=== PATIENT | female | born 1985 | race Hispanic/Latino ===

== ENCOUNTER → 2024-02-11 | Outpatient (CLI) | payer BC | END | disposition home or self-care (01) | LOC: RAH 12:54 | PROVIDERS: ATTEND Family Medicine | DX: Z12.31 Encounter for screening mammogram for malignant neoplasm of breast (principal) | CPT/HCPCS: 77067 ==

== ENCOUNTER → 2024-10-09 | Outpatient (CLI) | payer BC ==
--- NOTE | 2024-10-09 15:57 | HMCIMG ---
BILATERAL BREAST ULTRASOUND: CLINICAL HISTORY: 38-year-old female for follow-up for left breast sonogram with bilateral breast sonogram. Finding: Real-time examination of the both breasts demonstrates homogeneous echotexture throughout both the breasts the left breast at 12:00 is a hypoechoic lesion measuring 1.0 x 0.86 x 0.76 cm.. The right breast has no lesion seen. IMPRESSION: Left breast at 12:00 there is a hypoechoic lesion seen measuring 1.0 x 0.86 x 0.76 cm. This is amenable for ultrasound-guided biopsy for histological sampling. CATEGORY 4: SUSPICIOUS ABNORMALITY. BIOPSY SHOULD BE CONSIDERED Recommend monthly self breast exam as well as annual clinical examination. A negative x-ray should not delay biopsy if a dominant or clinically suspicious mass is present, since 8-10% of cancers are not identified by mammography. Dense breasts particularly, may obscure an underlying neoplasm. Some of these may be detected clinically and therefore, clinical examination is an essential part of breast evaluation.
--- NOTE | 2024-10-09 15:58 | HMCIMG ---
DIGITAL left DIAGNOSTIC MAMMOGRAM Technique: The digital mammographic examination of left breast in craniocaudal, mediolateral oblique views along with CAD was obtained. History: This is a 38 years year-old female 2, para1 Ab1 . Patient has no family history of breast cancer. Patient has no complaint Reference:Prior mammogram and ultrasound from 02/11/2024 is available. Breast composition: Breast composition B: There are scattered areas of fibroglandular density. Finding: The digital mammographic examination of left breast in craniocaudal and mediolateral oblique view along with CAD demonstrates a density at 12:00 measuring approximately 1 cm which correlates with the ultrasound finding.. There is no evidence of any dendritic mass, cluster microcalcification or architectural distortion. The retromammary fat appears to be normal. IMPRESSION: Left breast at 12:00 there is a solid lesion seen which is amenable for ultrasound-guided biopsy.. FINAL ASSESSMENT: ACR: BI-RAD -4. Suspicious: Finding(s) without all the characteristics morphology of breast cancer but indicatingadefine probability of being malignant: biopsy should be considered. NOTE: IF A WORK-UP OF THIS PATIENT LEADS TO A BIOPSY, PLEASE FORWARD A COPY OF THE PATHOLOGY REPORT TO OUR OFFICE REQUIRED BY [employer] DECEMBER 20, 1993. A NEGATIVE MAMMOGRAM SHOULD NOT PRECLUDE BIOPSY OF A CLINICALLY PALPABLE SUSPICIOUS MASS, 10% OF BREAST CANCERS ARE MAMMOGRAPHICALLY OCCULT. THIS MAMMOGRAPHY FACILITY IS FULLY ACCREDITED BY THE [employer] (FDA). THANK YOU FOR THIS REFERRAL.
== END | disposition home or self-care (01) ==
LOC: RAH 14:01
PROVIDERS: ATTEND Family Medicine
DX: R92.323 Mammographic fibroglandular density, bilateral breasts (principal); N63.42 Unspecified lump in left breast, subareolar; R92.8 Other abnormal and inconclusive findings on diagnostic imaging of breast; N64.9 Disorder of breast, unspecified
CPT/HCPCS: 77065

== ENCOUNTER → 2024-10-30 | Outpatient (CLI) | payer BC ==
[2024-10-30 08:46] LABS: INR 0.97 (0.85-1.15)
--- NOTE | 2024-10-30 10:00 | NUR ---
U/S GD LT BREAST NODULE BX PROCEDURE PERFORMED BY DR FERGUSON . PUNCTURE SITE LT BREAST AND PATIENT TOLERATED PROCEDURE WELL. SPECIMEN X 4 COLLECTED AND SENT TO LAB. BREAST TISSUE MARKER DEPLOYED. END OF PROCEDURE AT 0940. BIOPSY NEEDLE REMOVED AND DRESSING APPLIED. NO BLEEDING NOTED. DISCHARGE INSTRUCTIONS GIVEN TO PATIENT AND VERBALIZED UNDERSTANDING. DISCHARGED VIA AMBULATORY AAO X3 WITH NO C/O PAIN.
--- NOTE | 2024-10-30 16:13 | HMCIMG ---
PERCUTANEOUS ULTRASOUND-GUIDED BIOPSY OF left breast lesion at 11-12 o'clock. BREAST MASS: CLINICAL HISTORY: This is a 39 [id number] female with left breast lesion at 11 12:00 for ultrasound-guided biopsy. The risk and benefit was explained to the patient. The risks include bleeding and infection. The patient consented to the procedure. Procedure: Under ultrasound guidance left breast lesion at 11-12 o'clock was localized. After sterile prep and drape, 1% Xylocaine was used for local anesthetic. Using a 14-gauge Bard gun a total of 4 core biopsy was obtained. The specimen was sent for histology and cell block. Patient tolerated procedure well. IMPRESSION: 1. PERCUTANEOUS ULTRASOUND-GUIDED BIOPSY OF left BREAST WITH SPECIMENS SENT FOR HISTOLOGY AND CELL BLOCK. THE PATIENT TOLERATED PROCEDURE WELL. PATHOLOGY REPORT IS PENDING. 2. PATIENT IS TO HAVE A POST BIOPSY MARKER PLACEMENT UNILATERAL left breast BREAST MAMMOGRAM.
== END | disposition home or self-care (01) ==
LOC: RAH 07:58
PROVIDERS: ATTEND Family Medicine
DX: D24.2 Benign neoplasm of left breast (principal); E28.2 Polycystic ovarian syndrome; E55.9 Vitamin D deficiency, unspecified; E78.49 Other hyperlipidemia; E11.9 Type 2 diabetes mellitus without complications; Z79.01 Long term (current) use of anticoagulants; Z79.899 Other long term (current) drug therapy
CPT/HCPCS: 19083; 85610; 85730; 36415; 88305; A4215 ×2